=== PATIENT | male | born 1995 | race Hispanic/Latino ===

== ENCOUNTER 2017-12-25 03:51 | Emergency (ER) | payer OTHER ==
[2017-12-25 03:56] VITALS: TEMP 98.6; O2SAT 98
[2017-12-25] MEDS ORDERED: Tdap Vaccine 0.5 ml Vial (10-64 yrs) IM ONE (04:41)
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
--- NOTE | 2017-12-25 07:14 | ED PDOC ---
- ECG O2 Sat by Pulse Oximetry: 98 Medical Decision Making Medical Decision Making: recd pending plastics consult 7am CT brain neg per report 830a Dr Carballo repaired wound and provided followup instructions, stated no Abx necessary will see in office tuesday for suture removal. Patient w stable gait and clear speech in ED, dc from ED. Disposition - Clinical Impression Clinical Impression: Head injury, Lip laceration - POA Present On Arrival: None - Disposition Referrals: Sergey Carballo MD [Medical Doctor] - Disposition: Routine/Home Disposition Time: 08:50 Condition: STABLE Additional Instructions: See Dr Carballo this tuesday for followup and suture removal. Keep area clean and dry. Instructions: Closed Head Injury (DC), Laceration Repair Forms: [facility] (Nauruan)
[2017-12-25] MEDS ORDERED: Povidone Iodine Topical 10% Sol ONE (08:43)
[2017-12-25 09:16] VITALS: BP 132/74; PULSE 88; RESP 16
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
--- NOTE | 2017-12-28 08:49 | OP ---
PROCEDURE DATE: 12/25/2017 PREOPERATIVE DIAGNOSES: 1. 9.2 cm central philtrum laceration across the vermilion border. 2. 9.5 x 1 cm upper left skin avulsion and mucosal avulsion. POSTOPERATIVE DIAGNOSES: 1. 9.2 cm central philtrum laceration across the vermilion border. 2. 9.5 x 1 cm upper left skin avulsion and mucosal avulsion. PROCEDURE PERFORMED: 1. Complex repair of the 9.2 cm upper philtrum laceration across the vermilion border. 2. Adjacent tissue transfer at 2 sq cm for left wound closure. ANESTHESIA: Regional. 1. Left infraorbital nerve block. 2. Right infraorbital nerve block. INDICATIONS FOR PROCEDURE: As follows: Please refer to my separately dictated ER consultation for history and physical. DESCRIPTION OF PROCEDURE: 1% lidocaine was used as a regional block. After allowing sufficient time for the anesthetic to take effect, the wound was thoroughly irrigated with normal saline. The area was prepped and draped in the usual clean and sterile manner starting at 1.2 cm central upper lip philtrum laceration across the vermilion border. The underlying muscle was repaired with 5-0 Monocryl in interrupted fashion. The deep dermis of the vermilion border was approximated in interrupted fashion with 5-0 Monocryl as was the deep dermis. I then lined up and approximated the vermilion border and the philtrum and epidermis with 6-0 Prolene suture in interrupted fashion. I then addressed the upper left 1.5 x 1 cm skin avulsion and mucosal avulsion. There was some necrotic avulsion, was debrided. After doing this, I could not close the wound primarily without to the skin with 5-0 Monocryl and approximated the muscle and the submucosa using 5-0 chromic in interrupted fashion tissue transfer. . The vermilion border was nicely aligned. The patient tolerated the procedure well and eventually discharged home from the emergency room in stable condition. Postop wound care, limitation of physical activities, and the fact there will be a scar, the prognosis of which is unknown were discussed, and all questions were answered. Sergey Carballo MD
== END 2017-12-25 09:10 | disposition home or self-care (01) ==
LOC: H.ER 03:51
DX: S01.511A Laceration without foreign body of lip, initial encounter (principal); S09.90XA Unspecified injury of head, initial encounter; Y04.0XXA Assault by unarmed brawl or fight, initial encounter; Y92.89 Other specified places as the place of occurrence of the external cause